=== PATIENT | male | born 1950 | race Caucasian/White ===

== ENCOUNTER 2016-05-20 13:09 | Inpatient (IN) | payer MEDICARE ==
[~2016-05-20] VITALS: Ht 177.8 cm; Wt 108.4 kg
--- NOTE | ~2016-05-20 | ECH ---
Transthoracic Echocardiography Report (TTE) Demographics Patient Name REG HERNÁNDEZ Date of Study 05/21/2016 Patient Number [id number] Visit Number [id number] Date of 1950 Room Number 533 Accession Number [id number] Gender Male Age 65 year(s) Referring Candice Cisneros MD Railroad Design Consultant Gena Agee [facility] Physician Kalen Ramirez MD Physician Interpreting Viky Zuluaga Veneer Trimmer Physician Supervising Ordering Physician Candice Cisneros MD, MD/P Nurse Stress Panama Hat Smearer Conclusions Summary Limited exam for left/right ventricular function. Doppler not performed. The estimated left ventricular ejection fraction is 55%. Normal appearing valves. Procedure Type of Study TTE procedure:Echo Limited SF. Procedure Date Date: 05/21/2016 Start: 12:34 PM Technical Quality: Adequate visualization Indications:Congestive heart failure, Hypertension and Diabetes. Appropriate Use Criteria: 9 Height: 70 inches Weight: 271 pounds BSA: 2.37 m Rhythm: Within normal limits HR: 66 bpm BP: 118/52 mmHg M-Mode/2D Measurements LV Diastolic Dimension: 5.24 cm LV Systolic Dimension: 2.98 cm LV Septum Diastolic: 0.87 cm LV PW Diastolic: 0.96 cm AO Root Dimension: 2.87 cm LA Dimension: 4.28 cm RV Diastolic Dimension: 4 cm LA volume: 70.85 ml LA volume index: 30 ml/m RV Base: 3.9 cm RV Mid: 2.6 cm TAPSE: 2.3 cm Doppler Measurements RA Area: 17.71 cm Findings Left Ventricle Normal left ventricle size and function. Right Ventricle Normal right ventricle structure and function. Left Atrium Normal left atrial size. Right Atrium Normal right atrial size. Mitral Valve Normal mitral valve structure and function. Aortic Valve The aortic valve was not well imaged. Tricuspid Valve Normal tricuspid valve structure and function. Pulmonic Valve Normal pulmonic valve structure and function. Pericardial Effusion No evidence of pericardial effusion. Miscellaneous Visualized portions of the aortic root and ascending aorta appear normal in size. Pleural Effusion No evidence of pleural effusion. Contractility Score LV regional wall motion:(0-Non visualized 1-Normal 2-Hypokinesis 3-Akinesis 4-Dyskinesis 5-Aneurysm) Signature Electronically signed by [facility]) on 05/21/2016 02:35 PM
[~2016-05-20 13:09] MED LIST: BAYER BACK & B1 EACH PO; DIOVAN80 MG PO; GLUCOPHAGE500 MG PO; SURFAK DPS240 MG PO; TYLENOL DPS325 MG PO
--- NOTE | 2016-05-22 16:04 | CO ---
ADMIT: 05/20/2016 RM/LOC: 533 [facility] MR#: [id number] [id number] [address] ED[place] REG Fajardo [address] [place] [address] Consultation SEX: M AGE: 65 : 1950 DATE OF CONSULTATION: 05/21/2016 ATTENDING PHYSICIAN: Rupert Higuera CONSULTING PHYSICIAN: Richi Pickering MD REASON FOR CONSULTATION: Acute kidney injury and volume overload. HISTORY OF PRESENT ILLNESS: The patient is a pleasant 65-year-old gentleman, [facility] He was [facility] to the hospital yesterday with a chief complaint of volume expansion and ascites. He has history of hypertension, diabetes, as well as obesity. He has history of heavy alcohol use in the past and he had quit drinking last year. He is noted to have some hepatomegaly on his ultrasound as well. He reports having a hospitalization about a month ago for similar issues and he was prescribed diuretics and eventually discharged home. It appears that his kidney function worsened with diuretics and recently his metolazone was stopped. Following this, he gained about 40 pounds of fluid and that worsened his symptoms. He reports tense ascites. Denies any fevers, chills, or rigors. He denies any orthopnea or PND. He denies any urinary complaints or any bowel complaints. He has been taking high heavy dose Saulo Aspirin as well, approximately 1 g a day. REVIEW OF SYSTEMS: Complete review of systems is negative in detail except as mentioned in the history of present illness. PAST MEDICAL HISTORY: 1. Hypertension. 2. Type 2 diabetes. 3. Vitamin D deficiency. 4. Diabetic retinopathy. 5. PTSD. 6. Morbid obesity. 7. Dyslipidemia. ALLERGIES: NO KNOWN DRUG ALLERGIES. MEDICATIONS: Reviewed in the chart. FAMILY HISTORY: Denies any family history of chronic kidney disease or renal replacement therapy. SOCIAL HISTORY: He is a . 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 No ongoing tobacco, alcohol, or recreational drug use. He quit drinking last year. PHYSICAL EXAMINATION: VITAL SIGNS: Temperature 98.4 Fahrenheit, pulse 64, blood pressure 118/52, saturating 95% on room air. GENERAL: He is pleasant, comfortable in a recliner. HEAD: Nontraumatic and normocephalic. Extraocular movements are intact. No ADMIT: 05/20/2016 RM/LOC: 533 [facility] MR#: [id number] [id number] [address] REG HERNÁNDEZ [address] [place] [address] Consultation SEX: M AGE: 65 : 1950 conjunctival pallor. Moist mucosa. CHEST: Clear to auscultation. CVS: Regular rhythm. S1 and S2. No rubs or gallops. ABDOMEN: Soft, distended, and tense ascites. EXTREMITIES: 2+ bilateral lower extremity edema. NEUROLOGIC: Alert and oriented x3. He is able to move all his extremities. PSYCHIATRIC: Affect and memory are within normal limits. MUSCULOSKELETAL: Major joints are within normal limits. Range of motion within normal limits. LABORATORY DATA: Reviewed. BMP with sodium of 140, potassium 5.4, CO2 of 27, creatinine 2.1 and it was 1.8 yesterday, calcium 8.1, albumin 3.2. His urinalysis with 2+ protein, negative blood, negative leukocyte esterase. He had hyaline casts in his urine. An abdominal ultrasound was performed, which did not show any hydronephrosis. ASSESSMENT AND PLAN: 1. Acute kidney injury-his urinalysis is noninflammatory that argues against a glomerular nephritis. Obstruction has been ruled out by imaging. Based on his urinalysis, he has prerenal acute kidney injury. I wonder if this is secondary to intraabdominal hypertension. I will obtain a spot-urine sodium. 2. Volume expansion/ascites-he has extravascular volume expansion in the form of ascites and lower extremity edema. He is obviously intravascularly deplete as suggested by hyaline casts in his urine. He would benefit from a paracentesis and that would probably be the quickest way of getting some fluid off him. In the mean time, I will push diuretics until such time when we can safely get a paracentesis. I will check labs to monitor medication toxicity. 3. Hyperkalemia-monitor for now. I will have the patient in a low-potassium diet and increase his diuretics as well. Thank you for this consultation. Please do not hesitate to contact with any questions. Richi Pickering MD/ enrico JOB #: [id number] CC: Rupert Higuera, Attending Physician Rupert Higuera, Family Physician
[2016-05-27] MEDS ORDERED: COREG DPS12.5 MG PO (14:06)
[2016-05-27] MEDS ORDERED: ASPIRIN-ACETAM1 EACH PO (14:09)
[2016-05-27] MEDS ORDERED: ALDACTONE DPS25 MG PO (14:14)
[2016-05-27] MEDS ORDERED: OMNICEF DPS300 MG PO (14:15)
--- NOTE | 2016-06-10 10:07 | HP ---
ADMIT: 05/20/2016 RM/LOC: 533 [facility] MR#: [id number] [id number] [address] REG HERNÁNDEZ [address] [place] [address] History and Physical SEX: M AGE: 65 : 1950 DATE OF SERVICE: CHIEF COMPLAINT: Retaining fluid in the abdomen and lower extremities. HISTORY OF PRESENT ILLNESS: The patient is a 65-year-old gentleman who [facility], was seen in the ER after being [facility] the [facility] with increased abdominal fluid with recent discontinuation of his metolazone for his acute kidney injury and he also notes some edema in the lower extremities. He was hospitalized back in February of 2015, states he was given Lasix at that time. He was also seen by Cardiology and had a stress test performed. He denies any other concerns or complaints at this time. PAST MEDICAL HISTORY: Potential CHF, hyperlipidemia, diabetes, vitamin D deficiency, macular edema, cataracts, diabetic retinopathy, PTSD, and obesity. PAST SURGICAL HISTORY: Ulnar nerve repair, jaw fracture in the , bilateral hernia repair. ALLERGIES: NONE. MEDICATIONS: 1. Atorvastatin 10 mg a day. 2. Cholecalciferol 2000 daily. 3. Carvedilol 6.25 b.i.d. 4. Ferrous sulfate 324 t.i.d. 5. Glipizide 15 b.i.d. 6. Hydralazine 50 t.i.d. 7. Fish oil 1000 daily. 8. Multivitamin daily. 9. Aspirin with caffeine every 6 hours as needed. FAMILY HISTORY: Significant for coronary artery disease, alcoholic liver, diabetes. REVIEW OF SYSTEMS: He denies fevers, chills, chest pain, shortness of breath, headaches, nausea, vomiting, numbness, tingling, melena. No other concerns or abdominal distention as well as lower extremity swelling. SOCIAL HISTORY: He notes prior tobacco use. Says he has not drink heavily since the 70s. He denies tobacco or drug use. He is a [place] . OBJECTIVE: VITAL SIGNS: Blood pressure is 99/57, pulse 66, respirations 18, temperature is 97, O2 saturation 96%. GENERAL: Alert, awake, and oriented, in no acute distress. HEENT: He is normocephalic and atraumatic. Pupils are round and reactive to light. Extraocular muscles are intact. HEART: Regular rate and rhythm. LUNGS: Diminished but clear. ADMIT: 05/20/2016 RM/LOC: 533 [facility] MR#: [id number] [id number] [address] [address] [place] [address] History and Physical SEX: M AGE: 65 : 1950 ABDOMEN: Soft, nontender. Positive distention secondary to ascites. No guarding or rigidity. He has some slight erythema along the abdomen. EXTREMITIES: No clubbing or cyanosis. He has 2+ bilateral edema. LABORATORY AND X-RAY DATA: Objectively labs; lactic acid 0.3. Blood cultures pending. CT of the abdomen and pelvis shows large amount of abdominal pelvic ascites. Edema in the anterior and lateral tissues greater than the dependent. The right kidney is normal. Trace pleural effusion. Atherosclerotic changes. Bilateral lymph nodes in the groin. Chest x-ray shows mild congestive heart failure. Urine is 2+ protein. Hepatic function panel shows potassium of 5 to 6, albumin of 3, alkaline phosphatase 263, AST 45. BNP is 3098. Outside records show yesterday sodium 130, potassium 6.4, chloride 103, CO2 is 26, gap 16, BUN 60, GFR is 34, creatinine is 8.6 yesterday. White count was 5.5, hemoglobin 9.8. Today, sodium 138, potassium 6.1, CO2 of 26, BUN 62, creatinine is 2. On 05/19/2016, A1c 7.3. On 04/21/2016, T4 is 1.1. TSH is 6.43, vitamin D is 30. ASSESSMENT: A 65-year-old male. 1. Ascites. 2. Possible congestive heart failure. 3. Acute kidney injury. 4. Hyperkalemia. 5. Diabetes. 6. Possible cellulitis. PLAN: We will have Cardiology as well as Nephrology weigh in. I will put him on Zosyn for his abdominal wall cellulitis. I will pursue gentle IV diuresis as well as additional imaging of the abdomen and await specialist input. Rupert Higuera MD/ enrico JOB #: [id number] CC: Rupert Higuera, Attending Physician Rupert Higuera, Family Physician
[2016-06-13] MEDS ORDERED: VITAMIN D-32000 UNI1 PO (17:47)
[2016-06-13] MEDS ORDERED: FERROUS SULFAT324 MG PO (17:47)
[2016-06-13] MEDS ORDERED: LIPITOR DPS20 MG PO (17:47)
[2016-06-13] MEDS ORDERED: FISH OIL 1,0001 EAC3 PO (17:48)
[2016-06-13] MEDS ORDERED: LASIX DPS80 MG PO (17:48)
[2016-06-13] MEDS ORDERED: VITAMIN B1100 MG PO (17:48)
[2016-06-13] MEDS ORDERED: LACTULOSE20 GM/30 M PO (17:48)
[2016-06-13] MEDS ORDERED: THERAPEUTIC MUL1 TA1 PO (17:48)
[2016-06-13] MEDS ORDERED: FLOMAX DPS0.4 MG PO (17:49)
[2016-06-13] MEDS ORDERED: GLUCOTROL DPS5 MG PO (17:49)
[2016-06-13] MEDS ORDERED: MAALOX DPS30 ML PO (17:49)
[2016-06-13] MEDS ORDERED: COLACE-DPS100 MG PO (17:50)
--- NOTE | 2016-06-20 21:14 | ER ---
ADMIT: 05/20/2016 RM/LOC: 533 [facility] MR#: [id number] [address] [address] [place], [place] [address] [place] [address] Emergency Room Report SEX: M AGE: 65 : 1950 DATE: 05/20/2016 ADDENDUM: CHIEF COMPLAINT: Swelling in abdomen. HISTORY OF PRESENT ILLNESS: This is a 65-year-old male who developed fluid in his belly about starting back in February. He has gained 30-40 pounds since then. He presented to the [facility] earlier today. They did a couple of labs and then sent him over to the emergency room. PHYSICAL EXAMINATION: GENERAL: His abdomen is very distended, slightly pink and warm to touch. VITAL SIGNS: Blood pressure 100/57, pulse is 57, respirations 20, temperature is 96.8 tympanic, and saturation of oxygen is 95% on room air. GENERAL APPEARANCE: No acute distress, but alert. HEENT: Pharynx is slightly dry, but no tonsillar swelling or exudate. HEART: Regular rate and rhythm. LUNGS: Decreased bilateral. ABDOMEN: Very distended. Minimal tenderness to palpation in the mid abdomen. He does have an umbilical hernia that is nontender to palpation. ABDOMEN: Slightly pink and warm. SKIN: Normal color, warm and dry. No rashes noted. EXTREMITIES: He does have about 1+ pedal edema bilateral. COURSE IN THE EMERGENCY ROOM: [facility] had already drawn a CBC and BMP. I added LFTs to complete this CMP, added amylase, lipase, urine, BNP, EKG, chest x- ray, and CT of his abdomen. Overall findings, CT of the abdomen showed subcutaneous edema with ascites. Chest x-ray showed cardiomegaly with congestion. His CBC was normal except for white count of 5.5, hemoglobin of 9.8. His BMP from the [facility] showed a potassium of 6.1, creatinine is 2, BUN is 62. His A1c is 7.3. Previous creatinine from the [facility] on April 30 showed a creatinine of 1.4. UA in ER is normal except for 2+ protein. I rechecked his potassium here. It was 5.6, albumin 3.0, alkaline phosphatase 263, AST is 45, proBNP is 3098. EKG showed sinus avery at a rate of 59. No peaked T-waves. ADMIT: 05/20/2016 RM/LOC: 533 [facility] MR#: [id number] [address] [address] [place] [address] [place] [address] Emergency Room Report SEX: M AGE: 65 : 1950 Dr. Rupert Higuera was called regarding this patient because [facility] is on diversion. He will admit the patient. I suggested starting antibiotics down here in the ER due to the slightly erythemic abdomen. He wants to hold antibiotics. He wants to be able to do a paracentesis before starting antibiotics, so antibiotics are held. CLINICAL IMPRESSION: 1. Ascites. 2. Anemia. 3. Acute renal insufficiency. DISPOSITION: Stable at admit. ISAURO Gomez / Steve Lentz MD / modl JOB #: [id number] CC: Rupert Higuera MD, Attending Physician UNKNOWN, Family Physician
--- NOTE | 2016-06-29 15:03 | CO ---
ADMIT: 05/20/2016 RM/LOC: 533 [facility] MR#: [id number] [address] [address] [place] [address] [place] [address] Consultation SEX: M AGE: 65 : 1950 DATE OF CONSULTATION: 05/21/2016 ATTENDING PHYSICIAN: Rupert Higuera CONSULTING PHYSICIAN: Kacie Harvey MD REASON FOR CONSULT: Questionable CHF. Ibeth Cordero RN, scribing for Kacie Harvey MD HISTORY OF PRESENT ILLNESS: Reg is a pleasant 65-year-old gentleman I have been asked to see in Cardiology consultation for questionable CHF. [facility], and was seen by Dr. Fareed Salmon in hospital here in February. He then followed up with the [facility]. He has history of normal ejection fraction in February of 60% to 65%. He has former tobacco use, hypertension, hyperlipidemia, and diabetes. In February, he was evaluated for acute shortness of breath, but his testing cardiac tran was essentially normal. Reg presented yesterday with increased ascites, peripheral edema, orthopnea, and shortness of breath. AST and ALT are normal. He is anemic with a hemoglobin of 9.0. His proBNP is 3098. He does have elevated creatinine of 2.1, where in February it was 1.0 and BUN of 60 which was mildly elevated at 30 in February. His weight a few months ago in hospital was 234 pounds on discharge. He presented at 270 pounds. Apparently, he was on metolazone for ascites. However, because of his worsening renal function, this was discontinued and his weight is now up 40 pounds. He has abdominal distention without any significant fluid on x-ray for his lungs and no JVD. He denies chest pain. He does report orthopnea and dyspnea on exertion. EKG demonstrates normal sinus rhythm, bradycardia heart rate of 59. No significant ST-T changes. PAST MEDICAL HISTORY: Hypertension, hyperlipidemia, diabetes, former tobacco use, macular edema, diabetic retinopathy, PTSD. PAST SURGICAL HISTORY: Includes hernia repair x2, herniated disk surgery, jaw fracture, and ulnar nerve surgery. ALLERGIES: NO KNOWN MEDICATION ALLERGIES. CURRENT MEDICATIONS: Include: 1. Apresoline 50 mg p.o. t.i.d. 2. Coreg 6.25 p.o. b.i.d. 3. Iron sulfate 325 p.o. t.i.d. 4. Lipitor 10 at bedtime. 5. [place]-3 of 1000 p.o. daily. 6. Multivitamin daily. 7. Vitamin D 2000 units daily. 8. Humalog sliding scale insulin a.c. and at bedtime. 9. Zosyn 3.375 g IV q.8 hours. FAMILY HISTORY: Positive family history of diabetes in sister. Denies family ADMIT: 05/20/2016 RM/LOC: 533 [facility] MR#: [id number] [address] [place] [address] [place] [address] [place] [address] Consultation SEX: M AGE: 65 : 1950 history of heart disease, stroke, or cancer. SOCIAL HISTORY: [facility] He denies any special diet, alcohol, or drug use. He has coffee on a regular basis. He quit smoking several years ago. REVIEW OF SYSTEMS: GENERAL: Reports some fatigue, but nothing substantial. He does report he does have noted about 40 pounds weight gain in the last couple months. EYES: History of diabetic retinopathy. He denies any visual changes, double vision. THROAT, MOUTH, and EARS: Denies hearing loss or problems with nose, mouth or throat. RESPIRATORY: Reports shortness of breath. Reports orthopnea. Denies hemoptysis. GASTROINTESTINAL: Denies heartburn or difficulty swallowing. No change in bowel habits. Denies dark or bloody stools. No history of ulcers, hiatal hernia, or gallbladder or liver disease. GENITOURINARY: He reports decreased urine output prior to hospitalization. He did have good urine output while here. No hematuria or burning. His renal function has worsened in the last few months with elevated creatinine currently. MUSCULOSKELETAL: Denies history of arthritis or gout. Denies muscle or joint pains. ENDOCRINE: Positive for diabetes. Denies thyroid history. HEMATOLOGY: He is anemic with a hemoglobin of 9. Denies any bleeding issues or cancer. NEUROLOGIC: Denies chronic headaches, dizziness, syncope, stroke, seizures or numbness or tingling. PSYCHIATRIC: History of PTSD. Denies any depression or anxiety. PHYSICAL EXAMINATION: VITAL SIGNS: Blood pressure 118/52, heart rate 64, respirations 16, temperature 98.4, and oxygenation 95% on room air. GENERAL: Obese white male, no acute distress. SKIN: [place], warm and dry. EYES: Sclerae clear. No xanthelasmas. ENT: Oral mucosa is pink and moist. No jugular venous distention or carotid bruits. CHEST: Respirations are even and unlabored. Lungs are clear to auscultation. HEART: Regular rate and rhythm. Normal S1, S2. No murmurs, rubs or gallops. ABDOMEN: Soft, nontender, protuberant. MUSCULOSKELETAL: Gait is normal. EXTREMITIES: No cyanosis or clubbing. 2+ pitting edema bilaterally. PSYCHIATRIC: Alert and oriented. Mood and affect are appropriate. DIAGNOSTIC DATA: Abdominal ultrasound on 05/21 showed ascites and hepatomegaly. Chest x-ray showed mild pulmonary vascular engorgement. Sodium 140, potassium 5.4, BUN 60, creatinine 2.1, glucose 102, AST 36, ALT 56, ADMIT: 05/20/2016 RM/LOC: 533 [facility] MR#: [id number] [address] [address] [place] [facility] [place], [place] [address] Consultation SEX: M AGE: 65 : 1950 amylase 32, lipase 145. ProBNP 3098. White blood cell count 5.1, hemoglobin 9.80, hematocrit 29.4, and platelets 183. ASSESSMENT/PLAN: 1. Right-sided heart failure. 2. Ascites. 3. Acute kidney injury. 4. Diabetes. His symptoms seem more like right-sided heart failure symptoms on exam. He currently is not showing any orthopnea or PND. I do recommend possibly a paracentesis and will leave this up to primary care physician. Appreciate renal consult. I will do a limited echo to evaluate LV and RV function and continue to follow closely. Thank you for the consult. I have read and agree with the documentation that has been completed regarding this visit. By signing this record, I attest that the documentation was completed in my physical presence and is an accurate record of the encounter. Ibeth Cordero RN / Kacie Harvey MD / enrico JOB #: [id number] CC: Rupert Higuera, Attending Physician Rupert Higuera, Family Physician
--- NOTE | 2016-07-02 20:17 | DS ---
ADMIT: 05/20/2016 RM/LOC: 533 [facility] MR#: [id number] [address] [address] [place], REG [place] [address] [facility] [place] [address] General Discharge Summary SEX: M AGE: 65 : 1950 ADMISSION DATE: 05/20/2016 DISCHARGE DATE: 05/26/2016 CONSULTANTS: 1. Cardiology. 2. Nephrology. DISCHARGE DIAGNOSES: Include: 1. Ascites. 2. Right-sided heart failure. 3. Acute kidney injury. 4. Chronic kidney disease. 5. Hyperkalemia. 6. Diabetes. 7. Abdominal wall cellulitis. 8. Anemia. 9. Elevated alkaline phosphatase. HISTORY OF PRESENT ILLNESS: Please refer to admission H and P dated 05/20/2016. HOSPITAL COURSE: The patient was admitted. Cardiology and Nephrology were consulted. He was put on Zosyn for abdominal wall cellulitis. Gentle diuresis was attempted. Somewhat hesitant initially of the paracentesis with concern of potential abdominal wall cellulitis. Venous Doppler was obtained. The patient was started on Teflaro. Attempt was made to transfer to the [facility]. He is on heparin for DVT prophylaxis. Hydralazine was stopped by Nephrology. The patient was started on lactulose and was also started on Aldactone, was started on Lantus. Zosyn was stopped. Coreg was increased. On 05/25/2016, paracentesis was performed and 1900 mL removed. On 05/26/2016, the patient was strongly requesting discharge, was recommended not to drive until cleared by PCP. Lasix and spironolactone were continued. Hydralazine was held by Nephrology. MEDICATIONS: Please see discharge MAR. PROCEDURES: On 05/25/2016, diagnostic/therapeutic paracentesis with 1900 mL removed. LABORATORY DATA: On 05/26/2016, hemoglobin 9.6. On 05/24/2016; white count 5.7, hemoglobin 9.7, platelets 201. On 05/25/2016, paracentesis fluid showed a total protein of 4.1 and an albumin of 2.2. On 05/24/2016, INR was 1.09. On 05/20/2016; UA shows 2+ protein with 52 hyaline casts, and rare mucus. On 05/23/2016, fecal occult negative. On 05/21/2016, fecal occult negative. On 05/26/2016; sodium 140, potassium 3.8, chloride 104, CO2 of 30, BUN 29, glucose 124, creatinine 1.5, calcium 8.5, AST 37, ALT 46. On 05/24/2016; sodium 141, potassium 3.8, chloride 103, CO2 is 31, BUN 35, glucose 111, creatinine 1.8, calcium 8.6, bilirubin is 0.8, total protein 7, albumin 3.1, alk phos 230, AST 33, ALT 49. On 05/23/2016; amylase 29, lipase 111. On ADMIT: 05/20/2016 RM/LOC: 533 [facility] MR#: [id number] [address] [address] [place] [address] [place] [address] General Discharge Summary SEX: M AGE: 65 : 1950 05/21/2016; sodium 140, potassium 5.4, chloride 107, CO2 of 27, BUN 60, glucose 120, creatinine 2.1, calcium is 8.1, bilirubin is 0.5, TPro 6.2, albumin 3, alk phos is 246, AST 36, ALT 56. On 05/20/2016; potassium at 5.6, alk phos 263, proBNP of 3098. On 05/21/2016, hep C antibody was negative. On 05/11/2016; urine creatinine 24, urine sodium was 103. Ammonia on 05/22/2016, was 33. Blood cultures on 05/20/2016, no growth after 5 days. Gram stain showed no bacteria. On paracentesis, few large unidentified cells. Paracentesis showed no growth after 5 days. RADIOLOGY: On 05/20/2016, CT abdomen and pelvis showed large amount of abdominopelvic ascites, additionally there is edema more pronounced in the anterior and lateral subcutaneous tissues to greater degree than the tissues. Liver and kidneys are grossly normal, trace right pleural effusion, mild atheromas changes, nonspecific bilateral lymph nodes in the groin. On 05/20/2016, chest x-ray shows mild congestive heart failure. On 05/20/2016, bilateral venous Doppler was negative. On 05/21/2016, ultrasound of the abdomen shows hepatomegaly, ascites, mild gallbladder wall thickening, adenomyomatosis, benign finding. On 05/24/2016, ultrasound of the abdomen shows small to moderate ascites. Echo on 05/21/2016, shows limited exam. Doppler not performed. EF was 55%, normal appearing valves. EKG on 05/20/2016, showed sinus bradycardia with first-degree AV block, with low QRS voltages in precordial leads. DISMISSAL: The patient was discharged on 06/05/2016, with cefdinir. DISCHARGE INSTRUCTIONS: He is to see Gastroenterology as an outpatient. I recommend he check his Accu-Cheks, call if greater than 200. Recommend no driving, needs to be on a diabetic and cardiac diet with CBC, CMP, and chest x- ray at followup. See Renal in 4 to 6 weeks, BMP in 2 weeks, Cardiology in 2 weeks. He is to see his PCP, Dr. Ndiaye in 3 days as well as see nutrition on May 28. Rupert Higuera MD/ augustinl JOB #: [id number] CC: Rupert Higuera MD, Attending Physician Rupert Higuera MD, Family Physician
== END 2016-05-26 17:33 | disposition home or self-care (01) | DRG 292 ==
LOC: ER 13:09 → 5MS 16:43
PROVIDERS: ADMIT Family Medicine
PROC: 0W9G3ZX Drainage of Peritoneal Cavity, Percutaneous Approach, Diagnostic (ICD-10-PCS; principal; 2016-05-25)
DX: I11.0 Hypertensive heart disease with heart failure (principal); N17.9 Acute kidney failure, unspecified; E87.5 Hyperkalemia; L03.311 Cellulitis of abdominal wall; R18.8 Other ascites; E87.70 Fluid overload, unspecified; I50.9 Heart failure, unspecified; K42.9 Umbilical hernia without obstruction or gangrene; D64.9 Anemia, unspecified; E78.5 Hyperlipidemia, unspecified; E66.9 Obesity, unspecified; Z68.38 Body mass index [BMI] 38.0-38.9, adult; E55.9 Vitamin D deficiency, unspecified; E11.319 Type 2 diabetes mellitus with unspecified diabetic retinopathy without macular edema; F43.10 Post-traumatic stress disorder, unspecified; F41.9 Anxiety disorder, unspecified; Z79.82 Long term (current) use of aspirin; Z82.49 Family history of ischemic heart disease and other diseases of the circulatory system; Z87.891 Personal history of nicotine dependence; Z79.4 Long term (current) use of insulin

== ENCOUNTER 2016-06-08 14:15 | Inpatient (IN) | payer MEDICARE, SELFPAY ==
[~2016-06-08] VITALS: Ht 177.8 cm; Wt 95.2 kg
[~2016-06-08 14:15] MED LIST changes: +ALDACTONE DPS25 MG PO; +ASPIRIN-ACETAM1 EACH PO; +COREG DPS12.5 MG PO; +OMNICEF DPS300 MG PO
--- NOTE | 2016-06-09 10:01 | HP ---
ADMIT: 06/08/2016 RM/LOC: 430 [facility] MR#: [id number] [id number] [address] REG HERNÁNDEZ [address] [facility] [place] [address] History and Physical SEX: M AGE: 65 : 1950 DATE OF SERVICE: CHIEF COMPLAINT: Weakness. HISTORY OF PRESENT ILLNESS: Reg Hernández is a 65-year-old man who [facility]. He was recently admitted to the service of Dr. Rupert Higuera secondary to large volume ascites as well as dyspnea. He was seen by Dr. Pickering at that time, as well as Cardiology. There is no discharge summary available for this today, however, it appeared that he was ultimately diagnosed with a normal EF as well as he did undergo paracentesis and ultrasound was noted to have small ascites and hepatomegaly, also had CT scan as well as anasarca. I cannot see where we got cytology on the peritoneal fluid, however, I mean he is dramatically improved with diuretic therapy. He came into the ER and was quite weak. Noted to have a blood pressure that was actually down into the 90s, noted to have a creatinine of 3.3. PAST MEDICAL HISTORY: 1. Hypertension. 2. Hyperlipidemia. 3. Diabetic retinopathy. 4. PTSD. 5. Obesity. 6. Clinical CHF, but does have a preserved ejection fraction. 7. Diabetes. 8. Presumptive chronic liver disease secondary to ascites, however, I do not see any clear characterization just on a cursory look at the labs. MEDICATIONS: 1. Lipitor. 2. Coreg. 3. Vitamin D. 4. Iron sulfate. 5. Glipizide. 6. Fish oil. 7. Multivitamin. 8. Aspirin. 9. Lasix. 10.Spironolactone. 11.Lactulose. 12.Vitamin B1. ALLERGIES: NO KNOWN MEDICAL ALLERGIES. FAMILY HISTORY: Positive for heart disease, alcoholic liver disease, and diabetes. SOCIAL HISTORY: He does not currently drink, smoke, or do drugs. He had done in the past. Lives by himself. ADMIT: 06/08/2016 RM/LOC: 430 [facility] MR#: [id number] [address] REG HERNÁNDEZ [address] [place] [address] History and Physical SEX: M AGE: 65 : 1950 REVIEW OF SYSTEMS: Complete review of systems is reviewed and noted, negative unless otherwise stated in HPI. PHYSICAL EXAMINATION: VITAL SIGNS: Blood pressure is now 110/65, pulse 61, respiratory rate is 18, temperature is 98.4, and he is 100% on room air. GENERAL: He is alert and oriented x3, in no acute distress. HEENT: Normocephalic and atraumatic. Extraocular movements intact. Pupils equally round and responsive to light. No nasal discharge. Mucous membranes are dry. NECK: Supple. HEART: Regular. LUNGS: Clear but distant. ABDOMEN: Soft, nontender, and nondistended. EXTREMITIES: No clubbing or cyanosis. LABORATORY DATA: White blood cells are 6.8, hemoglobin is 10.9, platelets are 216. Sodium is 136, potassium is 5.4, chloride is 100, bicarb is 23, BUN is 110, creatinine is 3.3, glucose 198, calcium is 9, bilirubin 0.4, total protein 8.3, albumin is 3.9, alkaline phosphatase 170, AST is 47, ALT is 73, and magnesium is 2.6. ASSESSMENT AND PLAN: 1. Acute renal failure. The patient does have a creatinine of approximately 3.3, had a preserved ejection fraction on his previous echocardiogram, however, did have some abdominal ascites. He was placed on some diuretic therapy with Lasix and spironolactone. It appears that they were moving down the road of portal hypertension as the etiology of his ascites and fluid retention. I will go ahead and place a Langley catheter to ensure that he has not had any bladder retention causing obstructive uropathy, and I will consult Nephrology to follow for his acute renal failure. 2. Type 2 diabetes mellitus[address] him on a supplemental scale insulin. 3. Hypertension, maintain him on his normal antihypertensives. 4. Hyperlipidemia, maintain him on his antilipemic therapy. 5. Abdominal ascites. We will look into this more significant characteristic of fluid more clearly based on previous labs. If he had ADMIT: 06/08/2016 RM/LOC: 430 [facility] MR#: [id number] [address] REG HERNÁNDEZ [address] [place] [address] History and Physical SEX: M AGE: 65 : 1950 not run cytology, we will go ahead and need to repeat his ultrasound and then consider repeat paracentesis and further characterization of that fluid. He will be placed on heparin subcu for prophylaxis. He is already on antacid therapy. The patient is not in any heart failure at this time. Did have a preserved ejection fraction. I will further characterize some of the findings during his last hospitalization. If we do any Cardiology we certainly will consult them, but I do not feel they have much to add at this point in time. The patient does wish to be a full code. I discussed this plan with the patient, who expressed understanding, was in agreement, and had no further questions. Niko Ambrose MD/ enrico JOB #: [id number] CC: Niko Ambrose, Attending Physician [facility] Physician, Family Physician
--- NOTE | 2016-06-13 13:49 | ER ---
ADMIT: 06/08/2016 RM/LOC: 430 [facility] MR#: [id number] [id number] [address] ED[place], REG Scotty [address] [place] [address] Emergency Room Report SEX: M AGE: 65 : 1950 DATE: 06/08/2016 HISTORY OF PRESENT ILLNESS: The patient is a 65-year-old male with a past medical history of diabetes, hypertension, presumably CHF, and recent acute kidney injury, who was brought to the ER because of the bilateral lower extremity weakness and generalized weakness since this morning. The patient states this morning, he sat on a chair and he had difficulty standing up because he felt generally very weak. The patient denies any chest pain, shortness of breath, headaches, numbness, or tingling. In the ER, the patient is alert, oriented, and mildly lethargic. Systolic blood pressure was 128 in the ER. The patient states his systolic blood pressure this morning was in the 80s and 90s. The patient was not tachycardic and was afebrile in the ER. Head and neck were noncontributory. Trachea is midline. Bilaterally equal breath sounds, I did not hear any extra sounds, crackles, or wheezing. Normal S1, S2 without any S3 or S4 or murmurs. Abdomen is mildly distended, but is nontender and no guarding. The patient can lift all the extremities and move them around against gravity for more than a minute easily and can move it around without any problem. Force, motor or sensory is grossly normal in bilateral upper and lower extremities. Cerebellar test and cranial nerves are also normal too. EKG was questionable with just first-degree heart block, WA elongation, troponin I was negative. BNP was 300, ProBNP was 347. The patient's creatinine was 3.3, per chart the patient has a creatinine of 2 from [place] at the end of April and for that time, the patient was admitted for acute kidney injury. Also, BUN was elevated to 110. Potassium was also 5.4. With the diagnosis of acute kidney injury, prerenal, the patient was started on IV fluids in the ER. Internal Medicine was consulted, and the patient was admitted for further followups and treatment of acute kidney injury, prerenal; hyperkalemia, and generalized weakness. Ritesh Strange MD/ enrico JOB #: [id number] CC: Niko Ambrose MD, Attending Physician [facility] Physician, Family Physician
[2016-06-13] MEDS ORDERED: FERROUS SULFAT324 MG PO (17:47)
[2016-06-13] MEDS ORDERED: VITAMIN D-32000 UNI1 PO (17:47)
[2016-06-13] MEDS ORDERED: LIPITOR DPS20 MG PO (17:47)
[2016-06-13] MEDS ORDERED: VITAMIN B1100 MG PO (17:48)
[2016-06-13] MEDS ORDERED: THERAPEUTIC MUL1 TA1 PO (17:48)
[2016-06-13] MEDS ORDERED: LASIX DPS80 MG PO (17:48)
[2016-06-13] MEDS ORDERED: FISH OIL 1,0001 EAC3 PO (17:48)
[2016-06-13] MEDS ORDERED: LACTULOSE20 GM/30 M PO (17:48)
[2016-06-13] MEDS ORDERED: MAALOX DPS30 ML PO (17:49)
[2016-06-13] MEDS ORDERED: GLUCOTROL DPS5 MG PO (17:49)
[2016-06-13] MEDS ORDERED: FLOMAX DPS0.4 MG PO (17:49)
[2016-06-13] MEDS ORDERED: COLACE-DPS100 MG PO (17:50)
--- NOTE | 2016-06-17 10:47 | CO ---
ADMIT: 06/08/2016 RM/LOC: 430 [facility] MR#: [id number] [address] REG HERNÁNDEZ [address] [place] [address] Consultation SEX: M AGE: 65 : 1950 DATE OF CONSULTATION: 06/09/2016 ATTENDING PHYSICIAN: Niko Ambrose CONSULTING PHYSICIAN: Richi Pickering MD REASON FOR CONSULTATION: Acute kidney injury. HISTORY OF PRESENT ILLNESS: The patient is a 65-year-old gentleman, who [facility] He was recently admitted to the hospital with ascites and renal failure that was secondary to intraabdominal hypertension. He responded well to diuretics and had an improvement in his kidney function steadily. He was discharged on Lasix 80 mg twice a day and spironolactone 25 mg twice a day. He notes that ever since he got off the hospital, he has been progressively weak. Yesterday, he got so weak that he fell in his kitchen. He was admitted to the hospital here and has been noted to be hypotensive over the last 24 hours. His blood pressure has been as low as 80 systolic. He notes that his ascites has resolved completely. He has no lower extremity edema. The Langley catheter was placed yesterday and he had approximately 1 L or more of urine out upon placement of Langley catheter. At the time of this encounter, he feels better. He feels somewhat stronger. His appetite is fair. Denies any dizziness or lightheadedness. Denies any urinary complaints. Denies any ftry-fht-ignltsd medications prior to admission. REVIEW OF SYSTEMS: A complete review of systems is negative in detail except as mentioned in history of present illness above. PAST MEDICAL HISTORY: 1. Hypertension. 2. Type 2 diabetes mellitus. 3. Vitamin D deficiency. 4. Diabetic retinopathy. 5. PTSD. 6. Morbid obesity. 7. Dyslipidemia. 8. Recent acute kidney injury secondary to intraabdominal hypertension. 9. Ascites. ALLERGIES: NO KNOWN DRUG ALLERGIES. MEDICATIONS: Reviewed in the chart. FAMILY HISTORY: No family history of chronic kidney disease or renal replacement therapy. SOCIAL HISTORY: He is a . He works for a company. No ongoing tobacco, alcohol, or recreational drug use. He quit alcohol last year. ADMIT: 06/08/2016 RM/LOC: 430 [facility] MR#: [id number] [id number] [address] REG HERNÁNDEZ [address] [place] [address] Consultation SEX: M AGE: 65 : 1950 PHYSICAL EXAMINATION: VITAL SIGNS: Temperature 98.5 Fahrenheit, pulse 67, blood pressure 113/59, and saturating 98% on room air. GENERAL: He is comfortable in a bed. HEENT: Head is nontraumatic and normocephalic. Extraocular movements are intact. Moist mucosa. NECK: Supple without any JVD. CHEST: Clear to auscultation. CVS: Regular rhythm. S1, S2 heard. No rubs, murmurs, or gallops. ABDOMEN: Soft and nontender. EXTREMITIES: No edema. SKIN: No rash or nodules. NEUROLOGIC: Alert, awake, and oriented x3. He is able to move all his extremities. PSYCHIATRIC: Affect and memory within normal limits. MUSCULOSKELETAL: Major joints within normal limits. Range of motion within normal limits. LABORATORY DATA: Reviewed. BMP with sodium 140, potassium 4.4, CO2 of 23, creatinine 2.8 down from 3.3 last night, BUN is 103 down from 110 last night. Calcium 8.6. Hemoglobin 12.1. Urinalysis 1+ protein, negative blood, negative leukocyte esterase. He did have hyaline casts in his urine. ASSESSMENT/PLAN: 1. Acute kidney injury. 2. Azotemia. 3. Hyperkalemia that has now resolved. His acute kidney injury is likely prerenal in etiology with a contribution from urinary retention. I agree with holding his diuretics for the time being, at least over the next 24 hours. I will cut down his IV fluids now that his hemodynamics are better. He may need a urology evaluation versus a trial of Flomax down the road for his urinary retention. I will monitor his kidney function and electrolytes during this hospitalization. Thank you for this consultation. Please do not hesitate to contact me with any questions. Richi Pickering MD/ enrico JOB #: [id number] CC: Niko Ambrose, Attending Physician [facility] Physician, Family Physician
--- NOTE | 2016-06-19 16:36 | DS ---
ADMIT: 06/08/2016 RM/LOC: 430 [facility] MR#: [id number] [address] [address] [place] [address] [place] [address] Discharge Summary SEX: M AGE: 65 : 1950 ADMISSION DATE: 06/08/2016 DISCHARGE DATE: 06/12/2016 CONSULTATIONS: Dr. Pickering with nephrology. FINAL DIAGNOSES: 1. Acute renal failure on chronic kidney disease, improved. 2. Urinary retention, resolved. 3. Orthostasis, improved. 4. Right heart failure, stable. 5. Physical deconditioning. REASON FOR ADMISSION: Please see H and P. However briefly, admitted for acute on chronic kidney disease. HOSPITAL COURSE: Admitted to the service of [facility] under the care of myself, Niko Ambrose MD. Receives consultation with nephrology. We held his diuretic therapy. Gave him IV fluids secondary to acute renal failure. His creatinine has actually improved quite nicely. It is actually 1.7. He does remain stable from a hemodynamic standpoint as far as heart rates and resting blood pressures. However, he does have some orthostasis. Ended up holding his beta-amaury secondary to this orthostasis and this does actually improve nicely. Still has mild degree of orthostasis but he is overall much improved. I did encourage the patient to discharge to a rehab facility because I think he would really benefit from further rehab. However, the patient declines to do this. States he is not going to an old folks home. He is also considering whether or not he will actually take home health care but he does wish to discharge to his trailer. He does demonstrate with physical therapy that he actually does do the tasks that he needs to at home and therefore at this point, there is no indication for further acute hospitalization and we will discharge this patient to home per his wishes. However, we do recommend rehab and he is aware of this. ADMIT: 06/08/2016 RM/LOC: 430 [facility] MR#: [id number] [address] [address] [place] [address] [place] [address] Discharge Summary SEX: M AGE: 65 : 1950 DISPOSITION: Home. DISCHARGE CONDITION: Stable. DISCHARGE MEDICATIONS: See medication reconciliation, reviewed and accurate. DISCHARGE INSTRUCTIONS: Discharge to home on the above medication reconciliation. He will have repeat laboratories next 3-5 days. He will follow up with his PCP in the next 3-5 days. I discussed the plan with the patient, expressed understanding, was in agreement and had no further questions. A total of 35 minutes spent on discharge activities of this patient. Niko Ambrose MD/ vdg JOB #: [id number] CC: Niko Ambrose MD, Attending Physician [facility] Physician, Family Physician
== END 2016-06-12 14:06 | disposition home or self-care (01) | DRG 683 ==
LOC: ER 14:15 → 4PCU 16:29
PROVIDERS: ADMIT Internal Medicine
DX: N17.9 Acute kidney failure, unspecified (principal); I13.0 Hypertensive heart and chronic kidney disease with heart failure and stage 1 through stage 4 chronic kidney disease, or unspecified chronic kidney disease; E11.22 Type 2 diabetes mellitus with diabetic chronic kidney disease; I50.9 Heart failure, unspecified; N18.9 Chronic kidney disease, unspecified; I95.2 Hypotension due to drugs; T44.7X5A Adverse effect of beta-adrenoreceptor antagonists, initial encounter; E87.5 Hyperkalemia; E66.9 Obesity, unspecified; Z68.30 Body mass index [BMI] 30.0-30.9, adult; R33.9 Retention of urine, unspecified; E11.319 Type 2 diabetes mellitus with unspecified diabetic retinopathy without macular edema; I44.0 Atrioventricular block, first degree; E55.9 Vitamin D deficiency, unspecified; E78.5 Hyperlipidemia, unspecified; F43.10 Post-traumatic stress disorder, unspecified; Z79.82 Long term (current) use of aspirin; Z79.84 Long term (current) use of oral hypoglycemic drugs